=== PATIENT | female | born 1955 | race Caucasian/White ===

== ENCOUNTER 2018-03-11 12:48 | Outpatient (CLI) | payer MEDICARE, BC ==
--- NOTE | 2018-03-11 13:36 | MMO ---
BILATERAL SCREENING MAMMOGRAM: Date: 03/11/18 HISTORY: 63-year-old female. Routine screening mammography. COMPARISON: 02/10/10, 07/15/14, 03/21/16. TECHNIQUE: CC and MLO views of both breasts are submitted for interpretation. This patient's mammogram was reviewed with the assistance of computer-aided detection. FINDINGS: The breasts are composed of scattered fibroglandular tissue. Bilaterally, no suspicious dominant mass , architectural distortion, or suspicious calcifications. Stable nodule in the left periareolar region, measuring 6.0 mm. IMPRESSION: BIRADS 2: Benign Finding(s) RECOMMENDATION: Annual mammogram. POS: J[facility]
== END 2018-03-11 12:49 | disposition home or self-care (01) ==
LOC: SCSMAMMO 12:48
PROVIDERS: ATTEND Family Medicine
DX: Z12.31 Encounter for screening mammogram for malignant neoplasm of breast (principal)
CPT/HCPCS: 77067